=== PATIENT | female | born 1990 | race Caucasian/White ===

== ENCOUNTER → 2018-10-04 11:22 | Observation (INO) ==
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
== END | disposition home or self-care (01) ==
LOC: 1NENULAB
PROVIDERS: ADMIT Registered Nurse; ATTEND Registered Nurse

== ENCOUNTER → 2018-10-09 05:35 | Observation (INO) ==
--- NOTE | 2018-10-09 06:24 | Discharge Summary ---
Date of Encounter: 10/09/18 Time of Encounter: 06:24 - Discharge Diagnosis (1) 29 weeks gestation of Priority: Primary Status: Acute Comments: Admitted to observation for complaint of increased movement throughout the night. FHR 140 bpm, moderate variability, +10x10 accels, occassional variable decels. - Discharge Medications Home Medications: Pnv No.95/Ferrous Fum/Folic AC [ Caplet] 1 each PO DAILY 10/04/18 [History] Allergies/Adverse Reactions: Allergy/AdvReac Type Severity Reaction Status Date / Time No Known Allergies Allergy Verified 10/09/18 05:05 Date of admission: 10/09/18 04:40 Discharging clinician: Neisha Buck Anticipated date of discharge: 10/09/18 - Patient Status Disposition: Home, Self-Care Condition: Good Functional capacity at discharge: independent ambulation Overall status at discharge: patient is progressing back to baseline - Discharge Instructions Additional Instructions: Keep all OB appointments LABOR AND DELIVERY DISCHARGE INSTRUCTIONS Signs and Symptoms to be Reported to your Doctor Immediately: * Sudden gush, continuous or intermittent lead of fluid from vagina (note the time of gush and color of fluid) * Onset of bright red vaginal bleeding with or without pain (if you had a vaginal exam during this visit you may notice some dark red spotting. This is normal.) * Lower abdominal cramping or backache that is premenstrual-like feeling. * More than 6 contractions in one hour. * Burning during urination, having to urinate more frequently or pain in your mid-back. * A change in the baby's activity. This could be an increase or decrease in activity. * Severe headache which does not go away with tylenol. * Sudden swelling in the face, hands, arms and/or legs. * Upper abdominal pain - sometimes associated with heartburn or nausea and is not relieved by Maalox, Mylanta or Tums. * Dizziness or blurred vision or visual disturbances (seeing stars/lights). * Kick Counts One hour after a meal, lay down on one side in a quiet place. Count the number of jose the baby moves during an hour. If less than 6 movements, notify your physician. Diet: *Force fluids - 8-10 tall glasses of fluid per day. May include popsicles and jello. 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 She states this is not the normal for her baby and was concerned. FHR is appropriate for gestational age. She denies fluid leakage, vaginal bleeding and contractions. Patient is discharged home with standard discharge instructions and is to follow up for her routine visit. Time Attestation: Total time spent providing and/or coordinating discharge services: Time Spent: Less than 30 minutes Exam - Constitutional General appearance IM: A&O X 3, pleasant, no acute distress, answers questions appropriately - Respiratory Respiratory exam: Present: CTAB - Cardiovascular Cardiovascular exam IM: Present: RRR, +S1, +S2 - GI/Abdominal GI/Abdominal exam IM: normal bowel sounds, soft - Rectal Rectal exam: deferred - Extremities Exam Extremities exam IM: Present: full ROM, normal capillary refill, normal inspection - Neurological Exam Neurological exam: alert, normal gait, oriented X3 - VTE Reasons for not Prescribing Prophylaxis: Treatment not Indicated - Low risk for VTE
== END | disposition home or self-care (01) ==
LOC: 1NENULAB
PROVIDERS: ADMIT Registered Nurse; ATTEND Registered Nurse

== ENCOUNTER 2018-12-10 17:43 | Observation (INO) ==
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
[2018-12-10 18:58] LABS: Amphetamine Screen,Urine Negative ng/mL (Cutoff=1000); Barbiturate Screen,Urine Negative ng/mL (Cutoff=200); Benzodiazepines Screen,Urine Negative ng/mL (Cutoff=200); Cannabinoid Screen,Urine Negative ng/mL (Cutoff = 50); Cocaine Screen,Urine Negative ng/mL (Cutoff= 300); Opiate Screen,Urine Negative ng/mL (Cutoff=300); Phencyclidine Screen,Urine Negative ng/mL (Cutoff=25)
[2018-12-10 19:00] LABS: Basophils # 0.1 K/mcL (0.0-0.2); Basophils % 0.6 %; Eosinophils % 0.3 %; Hematocrit 39.2 % (35.3-44.9); Hemoglobin 13.6 g/dL (11.5-15.4); Immature Granulocytes % 3.2 % (0-4); Lymphocytes # 1.4 K/mcL (0.6-4.6); Lymphocytes % 10.9 %; Mean Corpuscular HGB Conc 34.7 g/dL (31.6-35.5); Mean Corpuscular Hemoglobin 32.6 pg (28.0-33.3); Mean Platelet Volume 11.1 fL (9.4-12.4); Monocytes # 0.6 K/mcL (0.0-1.3); Monocytes % 4.5 %; Neutrophils # 10.7 K/mcL (1.6-8.9); Platelet Count 153 K/mcL (140-400); Red Blood Count 4.17 M/mcL (3.82-4.97); Red Cell Distribution Width 12.2 % (11.5-14.5); Segmented Neutrophils % 80.5 %
--- NOTE | 2018-12-10 19:30 | OB/GYN Progress Note ---
Date of Encounter: 12/10/18 Time of Encounter: 19:28 - Assessment and Plan (1) and not yet delivered in third trimester Current Visit: Yes Status: Acute (2) 38 weeks gestation of Current Visit: Yes Status: Acute (3) Abdominal trauma Current Visit: Yes Status: Acute Qualifiers: Encounter type: initial encounter Qualified Code(s): S39.91XA - Unspecified injury of abdomen, initial encounter (4) Previous section complicating Current Visit: Yes Status: Acute (5) Left arm pain Current Visit: Yes Status: Acute Subjective - Subjective Interval history: patient not feeling any contractions and still getting good movement, still having a lot of pain to her left arm, unable to move it, all labs are normal, will send patient back to the ER for evaluation for her arm pain, Objective - Vital Signs Vital Signs: Intake and Output 12/10/18 12/10/18 12/10/18 07:59 15:59 23:59 Other: Weight 67.6 kg Patient Weight 12/10/18 23:59 Weight 67.6 kg - Exam FHR: category 1 FHR comments: FHT's 140's reactive occ contractions seen, patient does not feel them Abdomen: Present: gravid Cervical dilation: 1 Cervix effacement: 50 station: -3 Comments: still unable to more left arm pain around the elbow - Labs Labs: Abnormal lab results WBC 13.3 K/mcL (4.3-11.1) H 12/10/18 18:15 Neutrophils # 10.7 K/mcL (1.6-8.9) H 12/10/18 18:15
== END 2018-12-10 19:40 | disposition other institution (70) ==
LOC: 1NENULAB
PROVIDERS: ADMIT Registered Nurse; ATTEND Registered Nurse

== ENCOUNTER 2018-12-19 07:30 | Inpatient (IN) ==
[2018-12-19] MEDS ORDERED: Naloxone 0.4 MG/ML INJ IVP PRN ×2 (07:42→10:44)
[2018-12-19] MEDS ORDERED: Famotidine 20 MG/2 ML VIAL IVP PRN (07:42)
[2018-12-19] MEDS ORDERED: Metoclopramide 10 MG/2 ML VIAL IVP PRN ×2 (07:42→13:22)
[2018-12-19] MEDS ORDERED: Ringers Solution, Lactated 1,000 ML IVC ONE (07:44)
[2018-12-19] MEDS ORDERED: Ringers Solution, Lactated 1,000 ML IVC SCH (07:45)
[2018-12-19 08:31] LABS: Basophils # 0.1 K/mcL (0.0-0.2); Basophils % 0.5 %; Eosinophils # 0.1 K/mcL (0.0-0.6); Eosinophils % 0.5 %; Hematocrit 38.8 % (35.3-44.9); Hemoglobin 13.5 g/dL (11.5-15.4); Immature Granulocytes % 2.4 % (0-4); Lymphocytes # 1.7 K/mcL (0.6-4.6); Lymphocytes % 18.3 %; Mean Corpuscular HGB Conc 34.8 g/dL (31.6-35.5); Mean Corpuscular Hemoglobin 33.1 pg (28.0-33.3); Mean Corpuscular Volume 95.1 fL (83.0-100.0); Mean Platelet Volume 10.5 fL (9.4-12.4); Monocytes # 0.6 K/mcL (0.0-1.3); Monocytes % 6.1 %; Neutrophils # 6.8 K/mcL (1.6-8.9); Platelet Count 169 K/mcL (140-400); Red Blood Count 4.08 M/mcL (3.82-4.97); Red Cell Distribution Width 12.2 % (11.5-14.5); Segmented Neutrophils % 72.2 %
[2018-12-19] MEDS ORDERED: cefOXitin 2,000 MG in 0.9 % Sodium Chloride Mini Bag 100 ML IVPB ONE (08:51)
--- NOTE | 2018-12-19 08:51 | History & Physical Report ---
Date of Encounter: 12/19/18 Time of Encounter: 08:49 24 Hour HP Update - Instructions Instructions: If the History and Physical is less than 30 days old and was completed prior to A.M. admission and or procedure and has NOT been updated on calendar day of procedure please complete this update prior to performing procedure. - Update Patient reports changes in Medical Condition: No Changes in examination, assessment, or condition: No Changes in Medication: No Preop tests/diagnostics Reviewed: Yes Surgery Remains Indicated: Yes Consent for Planned Operative Procedure(s) Verified: Yes - Pre-Operative Checklist Preoperative Checklist Indicated: Yes Prophylactic Antibiotic Ordered: Yes Home Medications Include Beta Renard: No Beta Renard Taken Today (Day of Surgery): No Beta Renard Taken Yesterday (Day Prior to Surgery): No Is VTE Prophylaxis Indicated?: Yes
[2018-12-19] MEDS ORDERED: *HR* Morphine Sulfate/PF 10 MG/10 ML AMPUL ONE (09:16)
[2018-12-19] MEDS ORDERED: *HR* FentaNYL (PF) 100 MCG/2 ML VIAL ONE (09:16)
[2018-12-19] MEDS ORDERED: EPHEDrine 50 MG/ML VIAL ONE (09:16)
[2018-12-19] MEDS ORDERED: Water for inj. (sterile) 10 ML IV ONE (09:17)
[2018-12-19] MEDS ORDERED: *HR* Phenylephrine 10 MG/ML VIAL ONE (09:17)
[2018-12-19] MEDS ORDERED: *HR* Oxytocin 10 UNIT/ML VIAL IM ONE ×2 (09:17→10:58)
[2018-12-19] MEDS ORDERED: Water for inj. (sterile) 20 ML IV ONE (09:22)
[2018-12-19] MEDS ORDERED: miSOPROStol 100 MCG TABLET PO ONE (09:43)
[2018-12-19] MEDS ORDERED: Ringers Solution, Lactated 1,000 ML ONE ×2 (10:08→10:57)
[2018-12-19] MEDS ORDERED: Ondansetron 4 MG/2 ML VIAL ONE (10:20)
--- NOTE | 2018-12-19 10:38 | Anesthesia Evaluation PreOp ---
Date of Encounter: 12/19/18 Time of Encounter: 08:57 - Past History Planned Operation: repeat c section Cardiac History: Denies any Significant Hx Pulmonary History: Denies Any Significant HX CARROT TIER History: Denies Any Significant HX Other Medical History: Denies Any Significant HX Anesthesia History: No Prior Anesthetic Complications, Past Anesthesia (Previous c section under GA, Eye muscle surgery X 3, No problems with GA. No FHAP.) : Yes Alcohol Use: none Drug use: none Medications and Allergies Pnv No.95/Ferrous Fum/Folic AC [ Caplet] 1 each PO DAILY 10/04/18 [History] Allergy/AdvReac Type Severity Reaction Status Date / Time No Known Allergies Allergy Verified 12/10/18 19:49 - Meds/Allergy Pre-op Review Medications Reviewed: Yes Allergies Reviewed: Yes Beta Blockers on Current Med List: No Anesthesia Results - Labs 12/19/18 08:15 Anesthesia Exam VSS and FHTs stable Height: 5'1" Weight: 66kg NPO (# of Hours): >8 Pain Scale: 0 Pain Scale Used: Numeric (1 - 10) - HEENT Pupil (Motor): Pupils equal Mallampati: IV (short chin, overbite with protruding incisors. States no known airway difficulties in the past.) - CARROT TIER LOC: Oriented CARROT TIER Motor: Normal RUE, Normal LUE, Normal RLE, Normal LLE, Normal Face CARROT TIER Sensory: Normal: RUE, LUE, RLE, LLE, Face - Cardiac Rhythm: Regular - Pulmonary Breath Sounds: bilateral Clear Respiratory Effort: Symmetrical Anesthesia Assess/Plan ASA Score: 2 Level of consciousness: Cooperative Anesthetic Plan: Spinal Monitoring Plan: Standard Monitors Recovery Plan: PACU
[2018-12-19] MEDS ORDERED: *HR* Morphine 2 MG/ML SYRINGE IVP PRN (10:44)
[2018-12-19] MEDS ORDERED: Ondansetron 4 MG/2 ML VIAL IVP PRN ×2 (10:44→13:22)
[2018-12-19] MEDS ORDERED: *HR* HYDROmorphone (PF) 1 MG/ML SYRINGE IVP PRN (10:44)
[2018-12-19] MEDS ORDERED: *HR* OxyCODONE/APAP 5/325 TABLET PO PRN (10:44)
[2018-12-19] MEDS ORDERED: Ibuprofen 400 MG TABLET PO PRN (10:44)
[2018-12-19] MEDS ORDERED: Acetaminophen IV 1,000 MG/100 ML INFUS..BTL IVPB ONE (10:50)
--- NOTE | 2018-12-19 11:07 | OB/GYN Procedure Note ---
Section - Date of procedure: 12/19/18 Preop diagnosis: desires repeat Post-op diagnosis: same (Left fallopian tube anterior peritoneum adhesions, left uterine varicosities in the lower uterine segment) Procedure: section, repeat low transverse, other (Using a lysis of left fallopian tube) Surgeon: Chiquita Hoyt Blood Loss: 800 Was there an print shop assistant present: No Bet Taker: Lydia Desir Anesthesia Type: Spinal section complications: uterine atony (Intraoperative and resolved with IV Pitocin and oral Cytotec) Disposition: L&D Recovery Room Specimens: Placenta - (s) Infant A Infant Delivery Date: 12/19/18 Infant Delivery Time: 10:13 Presentation: vertex Route of delivery: other () Gender: Male Viability: Viable Pounds: 7 Ounces: 6 Gram Weight: 3.345 kg at 1 minute: 8 at 5 minutes: 9 Placenta: spontaneous, uterine exploration Cord: 3 umbilical vessels - Narrative Narrative: The patient was taken to the operating room and given spinal anesthesia adequate for abdominal and pelvic surgery. She was prepped and draped in the usual sterile fashion. Timeout was completed. Anesthesia was tested to be adequate. A Pfannenstiel skin incision was made above and below the existing scar. The scar was removed. The subcutaneous layer was sharply dissected down to the fascia. The fascia was incised in the midline and extended bilaterally. 2 s traight Nini clamps were placed on the inferior fascial edge and the fascia was bluntly and sharply dissected away from the rectus muscles. This was repeated superiorly. The rectus muscles were bluntly bisected. Peritoneum was bluntly entered and then extended superiorly and inferiorly. Anterior vaginal wall was checked to be free of adhesions. Good hemostasis noted. The Bladder blade was placed to protect the bladder. Vesicouterine peritoneum was incised and reflected inferiorly and the bladder blade was replaced to protect the bladder. There were multiple dilated vessels in the lower uterine segment on the left side. A low transverse incision was then made through the lower uterine segment down to the amnion. This was bluntly extended bilaterally and extended superiorly on the left side with bandage scissors. The amnion was bluntly entered. This was followed by the vertex delivery of a viable and vigorous male weighing _7_#_6_oz with Apgars of _8 / 9. was placed on the maternal abdomen. The cord was clamped and cut after a delay. Infant was handed to the nursery care team. The placenta was delivered spontaneous and intact then the uterine cavity was digitally palpated and wiped clean with a moist lap sponge. There were no placental remnants identified. Clamps were placed on the uterine angles, the cervix was dilated with ring forcep and discarded off the field. The uterus is noted to be boggy despite IV bolus of Pitocin. The patient had a history of a hemorrhage. She was given 800 MCG's of Cytotec orally intraoperatively. The uterine incision was closed using 0 Vicryl suture in a running, locking fashion. A second imbricating layer completed the uterine closure with 0 Vicryl suture. Good hemostasis achieved using a 3-0 Vicryl in a [id number] fashion along the left side. The uterus seemed to be responding to the treatment above and was becoming firm. The pelvis was then irrigated with a copious amount of sterile water. And again good hemostasis was identified. Gloves were changed. The ovaries and fallopian tubes were examined and noted to be grossly normal bilaterally. The left fallopian tube was noted to be adherent to the peritoneum on the left side. This was lysed bluntly and sharply. Good hemostasis was achieved. The peritoneal edges and rectus muscles were then examined and found to be hemos tatic. The fascia was then closed using 0 PDS loop in a running nonlocking fashion. Subcutaneous tissue was irrigated with sterile water, good hemostasis was achieved. This layer was closed with O- stratastfix. The skin was then closed using a 4-0 Monocryl in a running subcuticular fashion. Dressing applied. Good hemostasis was noted. Estimated blood loss was 800cc. The Flaheryt was noted to be draining clear yellow urine at the end of the procedure. All sponge and instrument counts are correct at the end of the procedure. The patient was taken to the recovery room in stable condition.
--- NOTE | 2018-12-19 13:10 | Anesthesia Evaluation Post Op ---
Date of Encounter: 12/19/18 Time of Encounter: 12:30 - Vital Signs Vital Signs: VSS and WNL throughout PACU stay and upon arrival to MIU. - Lungs Lungs: Clear Ascult./Percussion - Airway Airway: Non-obstructed - Cardiovascular Regular Rate - Mental Status Mental Status: Alert & Oriented, Answers Appropriately - Pain Pain Scale: 3 Pain Scale used: Numeric (1 - 10) - Nausea Vomiting Nausea Vomiting: Not Present - Hydration Hydration: NPO, Flaherty catheter - Discharge PostOp Status: Transfer Patient to floor
[2018-12-19] MEDS ORDERED: Sennosides 8.6 MG TABLET PO PRN (13:22)
[2018-12-19] MEDS ORDERED: Rho Immune Globulin 1,500 UNIT SYRINGE IM ONE (13:22)
[2018-12-19] MEDS ORDERED: Oxytocin 20 units/ LR 1000 mL 20 UNIT/1,000 ML BAG IVC SCH (13:22)
[2018-12-19] MEDS ORDERED: Oxytocin 20 units/ LR 1000 mL 20 UNIT/1,000 ML BAG IVC ONE (14:46)
[2018-12-19] MEDS: Ibuprofen 600 MG TABLET PO SCH ×3 (19:26→23:49)
[2018-12-19] MEDS: Acetaminophen 325 MG TABLET PO SCH ×2 (19:46→21:53)
[2018-12-19] MEDS: *HR* OxyCODONE Immed Rel 5 MG TABLET PO PRN (20:25)
[2018-12-19] MEDS: Simethicone 80 MG TAB.CHEW PO PRN (20:25)
[2018-12-20] MEDS: *HR* OxyCODONE Immed Rel 5 MG TABLET PO PRN ×5 (00:32→22:54)
[2018-12-20 04:57] LABS: Basophils % 0.4 %; Eosinophils % 0.3 %; Hematocrit 29.2 % (35.3-44.9); Immature Granulocytes % 1.4 % (0-4); Lymphocytes # 1.2 K/mcL (0.6-4.6); Lymphocytes % 10.7 %; Mean Corpuscular HGB Conc 33.9 g/dL (31.6-35.5); Mean Corpuscular Hemoglobin 32.8 pg (28.0-33.3); Mean Corpuscular Volume 96.7 fL (83.0-100.0); Mean Platelet Volume 10.8 fL (9.4-12.4); Monocytes # 0.7 K/mcL (0.0-1.3); Monocytes % 5.8 %; Neutrophils # 9.1 K/mcL (1.6-8.9); Platelet Count 131 K/mcL (140-400); Red Blood Count 3.02 M/mcL (3.82-4.97); Red Cell Distribution Width 12.2 % (11.5-14.5); Segmented Neutrophils % 81.4 %
[2018-12-20 04:59] LABS: Hemoglobin 9.9 g/dL (11.5-15.4)
[2018-12-20] MEDS: Ibuprofen 600 MG TABLET PO SCH ×3 (05:47→21:08)
[2018-12-20] MEDS: Simethicone 80 MG TAB.CHEW PO PRN ×3 (05:47→21:08)
[2018-12-20] MEDS: Acetaminophen 325 MG TABLET PO SCH ×2 (08:09→22:53)
[2018-12-20] MEDS: Prenatal Vit/FA 1 EACH TABLET PO SCH (08:35)
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
[2018-12-20] MEDS ORDERED: *HR* OxyCODONE/APAP 5/325 TABLET PO ONE (18:38)
[2018-12-21] MEDS: *HR* OxyCODONE Immed Rel 5 MG TABLET PO PRN ×3 (03:14→11:43)
[2018-12-21] MEDS: Simethicone 80 MG TAB.CHEW PO PRN ×2 (03:14→07:40)
[2018-12-21] MEDS: Ibuprofen 600 MG TABLET PO SCH ×2 (03:16→09:45)
[2018-12-21] MEDS: Prenatal Vit/FA 1 EACH TABLET PO SCH (07:41)
[2018-12-21 10:47] VITALS: BP 100/55
--- NOTE | 2018-12-21 12:26 | Discharge Summary ---
Date of Encounter: 12/21/18 Time of Encounter: 12:24 - Discharge Diagnosis (1) History of hemorrhage Priority: Secondary Status: Acute Comments: Pt had severe PPH x2 with previous 10 days . She is very concerned about this occurring again. Will rx a cytotec PRN for pt comfort. (2) Patient is a currently breast-feeding mother Priority: Secondary Status: Acute Comments: well established. Pump rx given (3) delivery delivered Priority: Primary Status: Acute Comments: Pt meeting all post-op milestones. She reports referred gas pain and some incisional pain. No other complaints. (4) anemia Priority: Secondary Status: Acute Comments: Pt denies s/sx anemia. She declines iron rx. - Discharge Medications Prescriptions: New Breast Pump [BREAST PUMP] 1 each .ROUTE AD #1 each Ibuprofen [Motrin] 600 mg PO Q6HR #60 tablet OxyCODONE Immed Rel [Roxicodone 5 MG] 5 mg PO Q6HR PRN 7 Days #28 tablet PRN Reason: Severe Pain (7-10) Acetaminophen [Tylenol] 650 mg PO QID tablet Docusate [Colace] 100 mg PO BID #60 capsule Simethicone [Gas-X] 80 mg PO TID PRN tab.chew PRN Reason: Dyspepsia Misoprostol [Cytotec] 200 mcg PO ONCE #1 tablet Continued Pnv No.95/Ferrous Fum/Folic AC [ Caplet] 1 each PO DAILY Home Medications: Pnv No.95/Ferrous Fum/Folic AC [ Caplet] 1 each PO DAILY 10/04/18 [History] Acetaminophen [Tylenol] 650 mg PO QID tablet 12/21/18 [Rx] Breast Pump [BREAST PUMP] 1 each .ROUTE AD #1 each 12/21/18 [Rx] Docusate [Colace] 100 mg PO BID #60 capsule 12/21/18 [Rx] Ibuprofen [Motrin] 600 mg PO Q6HR #60 tablet 12/21/18 [Rx] Misoprostol [Cytotec] 200 mcg PO ONCE #1 tablet 12/21/18 [Rx] OxyCODONE Immed Rel [Roxicodone 5 MG] 5 mg PO Q6HR PRN 7 Days #28 tablet 12/21/18 [Rx] Simethicone [Gas-X] 80 mg PO TID PRN tab.chew 12/21/18 [Rx] Allergies/Adverse Reactions: Allergy/AdvReac Type Severity Reaction Status Date / Time No Known Allergies Allergy Verified 12/10/18 19:49 Data Procedures and tests throughout hospitalization: Laboratory Tests 12/19/18 12/20/18 08:15 04:31 WBC 9.5 11.2 H RBC 4.08 3.02 L Hgb 13.5 9.9 L D Hct 38.8 29.2 L MCV 95.1 96.7 MCH 33.1 32.8 MCHC 34.8 33.9 RDW 12.2 12.2 Plt Count 169 131 L MPV 10.5 10.8 Immature Gran % 2.4 1.4 Seg Neutrophils % 72.2 81.4 Lymphocytes % 18.3 10.7 Monocytes % 6.1 5.8 Eosinophils % 0.5 0.3 Basophils % 0.5 0.4 Neutrophils # 6.8 9.1 H Lymphocytes # 1.7 1.2 Monocytes # 0.6 0.7 Eosinophils # 0.1 0.0 Basophils # 0.1 0.0 Date of admission: 12/19/18 07:40 Primary care physician: Rose Gonzalez MD Discharging clinician: Rosie Roque Anticipated date of discharge: 12/21/18 - Patient Status Disposition: Home, Self-Care Condition: Good Functional capacity at discharge: independent ambulation Overall status at discharge: patient is progressing back to baseline - Discharge Instructions Follow Up With: Rose Gonzalez MD [Primary Care Provider] - Chiquita Middleton MD [Partnered Physician] - - Diet and Activity Activity: increase activity as tolerated Diet: regular diet Hospital Course Reason for admission: section Delivery: section Episiotomy: none Laceration: none Other procedures: none complications: none Discharge diagnosis: IUP at term delivered baby: male Hospital course: - Date of procedure: 12/19/18 Preop diagnosis: desires repeat Post-op diagnosis: same (Left fallopian tube anterior peritoneum adhesions, left uterine varicosities in the lower uterine segment) Procedure: section, repeat low transverse, other (Using a lysis of left fallopian tube) Surgeon: Chiquita Middleton Quantitated Blood Loss: 800 Was there an video library assistant present: No Lead Tinner: Lydia Desir Anesthesia Type: Spinal section complications: uterine atony (Intraoperative and resolved with IV Pitocin and oral Cytotec) Disposition: L&D Recovery Room Specimens: Placenta - Infant (s) A Infant Delivery Date: 12/19/18 Infant Delivery Time: 10:13 Presentation: vertex Route of delivery: other () Gender: Male Viability: Viable Pounds: 7 Ounces: 6 Gram Weight: 3.345 kg at 1 minute: 8 at 5 minutes: 9 Placenta: spontaneous, uterine exploration Cord: 3 umbilical vessels Time Attestation: Total time spent providing and/or coordinating discharge services: Time Spent: Less than 30 minutes - VTE Documentation of Mechanical Device: Intermittent pneumatic compression device Exam - Constitutional Vitals: Temp Pulse Resp BP Pulse Ox 97.7 F 81 16 100/55 99 12/21/18 07:35 12/21/18 07:35 12/21/18 07:35 12/21/18 07:35 12/21/18 07:35 General appearance IM: A&O X 3 - Respiratory Respiratory exam: Present: CTAB - Cardiovascular Cardiovascular exam IM: Present: RRR - GI/Abdominal GI/Abdominal exam IM: soft, no peritoneal signs Incision: intact (no s/sx infection, dry and intact with dermabond) - Uterine Tone: Firm Uterus Position: At Umbilicus - Extremities Exam Extremities exam IM: Present: pedal edema (mild bilaterally) - Neurological Exam Neurological exam: normal gait, oriented X3 - Psychiatric Additional comments: reports good mood
[2018-12-21] MEDS ORDERED: Lanolin 7 G OINT...G. TP PRN (12:37)
== END 2018-12-21 12:55 | disposition home or self-care (01) | DRG 788 ==
LOC: 1NENULAB 07:40 → 1NENUOBS 11:27
PROVIDERS: ADMIT Obstetrics & Gynecology; ATTEND Obstetrics & Gynecology